=== PATIENT | female | born 1980 | race Caucasian/White ===

== ENCOUNTER 2024-03-30 16:46 | Emergency (ER) | payer MEDICAID ==
[~2024-03-30] VITALS: Ht 165.1 cm; Wt 70.0 kg
[2024-03-30 16:50] VITALS: O2SAT 99
[2024-03-30] MEDS ORDERED: KETOROLAC 30MG/ML VIAL IM ONE (17:45)
[2024-03-30] MEDS ORDERED: METHOCARBAMOL 500MG TABLET PO ONE (17:45)
[2024-03-30] MEDS ORDERED: IBUP-2029 MT (18:43)
[2024-03-30] MEDS ORDERED: METH-653 MT (18:43)
[2024-03-30] MEDS: METHOCARBAMOL 500MG TABLET PO NR (19:38)
[2024-03-30] MEDS: KETOROLAC 30MG/ML VIAL IM NR (19:39)
[2024-03-30 20:10] VITALS: BP 123/75; PULSE 72; RESP 18; TEMP 36.66960; O2SAT 100
== END 2024-03-30 20:10 | disposition home or self-care (01) ==
LOC: ER 16:46
DX: S33.5XXA Sprain of ligaments of lumbar spine, initial encounter (principal); E11.9 Type 2 diabetes mellitus without complications; W18.39XA Other fall on same level, initial encounter; Y93.89 Activity, other specified; Y92.89 Other specified places as the place of occurrence of the external cause; Y99.8 Other external cause status
CPT/HCPCS: 99283; 72100; 96372; J1885